=== PATIENT | male | born 1950 | race African-American/Black ===

== ENCOUNTER 2018-06-05 13:09 | Inpatient (IN) | payer BC, OTHER ==
[~2018-06-05] VITALS: Ht 190.5 cm; Wt 149.7 kg
[2018-06-05] MEDS ORDERED: FUROSEMIDE 20MG/2ML VIAL IVP ONE (13:45)
[2018-06-05] MEDS ORDERED: ALBUTEROL (0.083%) 2.5MG/3ML NEB HHN STA (14:16)
[2018-06-05 14:24] LABS: HEMATOCRIT. 26.4 % (42.0-52.0); HEMOGLOBIN. 8.4 g/dL (14.0-18.0); MEAN CORPUSCULAR HEMOGLOBIN 26.1 pg (28.0-32.0); MEAN CORPUSCULAR VOLUME 82.6 fL (80.0-94.0); MEAN PLATELET VOLUME 9.6 fl (7.4-10.4); PLATELET 66 x1000/uL (130-400); RED CELL DISTRIBUTION WIDTH 18.6 % (11.6-14.6)
[2018-06-05 14:28] LABS: CHLORIDE 92 mEq/L (98-107)
[2018-06-05 14:31] LABS: INR 1.5; PARTIAL THROMBOPLASTIN TIME 30.6 sec (23.4-31.0); PROTHROMBIN TIME 14.9 sec (9.6-11.0)
[2018-06-05] MEDS ORDERED: LEVOFLOXACIN 250MG PREMIX 50 ML IV ONE (14:45)
[2018-06-05] MEDS ORDERED: DOCUSATE SODIUM 100MG CAPSULE PO PRN (15:30)
[2018-06-05] MEDS ORDERED: MAGNESIUM/ALUMINUM HYDROXIDE/SIMETHICONE 30ML UDC PO PRN (15:30)
[2018-06-05] MEDS ORDERED: NA PHOS,M-B/NA PHOS,DI-BA ENEMA 118ML PR PRN (15:30)
[2018-06-05] MEDS ORDERED: IPRATROPIUM/ALBUTEROL 0.5-3(2.5)MG/3ML NEB INH PRN (15:30)
[2018-06-05] MEDS ORDERED: GUAIFENESIN 200MG/10ML SUGAR FREE UDC PO PRN (15:30)
[2018-06-05] MEDS ORDERED: LORAZEPAM 0.5MG TABLET PO PRN (15:30)
[2018-06-05] MEDS ORDERED: ONDANSETRON HCL 4MG/2ML INJ IV PRN (15:30)
[2018-06-05] MEDS ORDERED: ACETAMINOPHEN 650MG SUPP PR PRN (15:30)
[2018-06-05] MEDS ORDERED: CLONIDINE 0.1MG TABLET PO PRN (15:30)
[2018-06-05] MEDS ORDERED: ALBUTEROL (0.083%) 2.5MG/3ML NEB ONE (16:10)
[2018-06-05 16:28] LABS: PLATELET ESTIMATE DECREASED
[2018-06-05] MEDS ORDERED: LEVOFLOXACIN 500MG PREMIX 100 ML IV SCH (16:30)
[2018-06-05] MEDS ORDERED: LEVOFLOXACIN 500MG PREMIX 100ML IV NR (17:00)
[2018-06-05] MEDS: HYDROCODONE/ACETAMINOPHEN 5/325MG TABLET PO PRN (18:10)
[2018-06-05 18:34] LABS: BG BASE EXCESS 10.6 mmol/L (-2.0-2.0); BG CARBOXYHEMOGLOBIN 1.1 % (0.5-1.5); BG DEOXYHEMOGLOBIN 13.6 % (0.0-5.0); BG FRACTION INSPIRED OXYGEN 21; BG HCO3 ACT 35.7 mmol/L (22.0-26.0); BG METHEMOGLOBIN 0.2 % (0.0-1.5); BG OXYGEN SATURATION 86.2 % (92.0-98.5); BG OXYHEMOGLOBIN 85.1 % (94.0-97.0); BG PCO2 51.2 mmHg (35.0-45.0); BG PH 7.461 (7.350-7.450); BG SAMPLE SITE RIGHT RADIAL; BG VENT MODE ROOM AIR
[2018-06-05] MEDS: ACETAMINOPHEN 325MG TABLET PO PRN (20:17)
[2018-06-05 22:00] VITALS: BP 106/57
[2018-06-05] MEDS: DIPHENHYDRAMINE 50MG/ML VIAL IV PRN (23:01)
[2018-06-05] MEDS ORDERED: CIPR-213 PO (23:51)
[2018-06-05] MEDS ORDERED: FURO80TA87 PO (23:51)
[2018-06-05] MEDS ORDERED: POTA99TA4 MT (23:51)
[2018-06-06] VITALS (9 sets, daily range): BP systolic 96–110; BP diastolic 53–80
[2018-06-06] MEDS: IPRATROPIUM/ALBUTEROL 0.5-3(2.5)MG/3ML NEB HHN SCH ×4 (01:08→19:48)
[2018-06-06 06:48] LABS: HEMATOCRIT. 25.4 % (42.0-52.0); HEMOGLOBIN. 8.1 g/dL (14.0-18.0); MEAN CORPUSCULAR HEMOGLOBIN 25.9 pg (28.0-32.0); MEAN CORPUSCULAR VOLUME 81.7 fL (80.0-94.0); MEAN PLATELET VOLUME 10.6 fl (7.4-10.4); PLATELET 74 x1000/uL (130-400); RED BLOOD CELL COUNT 3.11 mill/uL (4.7-6.1); RED CELL DISTRIBUTION WIDTH 18.4 % (11.6-14.6)
[2018-06-06 07:01] LABS: CLARITY URINE CLEAR (CLEAR); COLOR URINE DARK YELLOW (YELLOW); KETONES URINE NEGATIVE (NEGATIVE); LEUKOCYTE ESTERASE URINE TRACE (NEGATIVE); NITRITE URINE POSITIVE (NEGATIVE); OCCULT BLOOD URINE NEGATIVE (NEGATIVE); PROTEIN URINE 1+ (NEGATIVE); SPECIFIC GRAVITY URINE 1.013 (1.005-1.030)
[2018-06-06 07:22] LABS: CHLORIDE 93 mEq/L (98-107)
[2018-06-06 07:34] LABS: *AMPHETAMINES SCREEN URINE NEGATIVE (NEGATIVE)
[2018-06-06 07:35] LABS: LDL CHOLESTEROL 64 mg/dL (5-100)
[2018-06-06 07:35] LABS: *BARBITURATES SCREEN URINE NEGATIVE (NEGATIVE); *BENZODIAZEPINES SCREEN URINE NEGATIVE (NEGATIVE); *COCAINE SCREEN URINE NEGATIVE (NEGATIVE); METHADONE URINE SCREEN NEGATIVE (NEGATIVE); OPIATES URINE SCREEN PRESUMTIVE POSITIVE (NEGATIVE)
[2018-06-06 07:36] LABS: CREATINE KINASE 39 IU/L (39-308); CREATINE KINASE MB FRACTION < 1.0 ng/mL (0.5-3.6)
[2018-06-06 07:36] LABS: CANNABINOID URINE SCREEN NEGATIVE (NEGATIVE); PHENCYCLIDINE URINE SCREEN NEGATIVE (NEGATIVE)
[2018-06-06 07:37] LABS: HDL CHOLESTEROL 31 mg/dL (40-59); T4 FREE 1.48 ng/dL (0.76-1.46)
[2018-06-06] MEDS ORDERED: FUROSEMIDE 40MG/4ML VIAL IV SCH (09:00)
[2018-06-06 11:18] LABS: INR 1.6; PROTHROMBIN TIME 16.1 sec (9.6-11.0)
[2018-06-06 11:41] LABS: CREATINE KINASE MB FRACTION 1.1 ng/mL (0.5-3.6)
[2018-06-06 11:55] LABS: BG BASE EXCESS 8.3 mmol/L (-2.0-2.0); BG DEOXYHEMOGLOBIN 1.8 % (0.0-5.0); BG HCO3 ACT 34.4 mmol/L (22.0-26.0); BG OXYGEN SATURATION 98.2 % (92.0-98.5); BG OXYHEMOGLOBIN 97.2 % (94.0-97.0); BG PH 7.399 (7.350-7.450); BG PO2 111.9 mmHg (75.0-100.0); BG SAMPLE SITE RIGHT RADIAL; BG TOTAL HEMOGLOBIN 9.6 g/dL (12.0-18.0); BG VENT MODE NASAL CANNULA
[2018-06-06] MEDS ORDERED: FUROSEMIDE 40MG/4ML VIAL IVP NR (15:00)
[2018-06-06 16:27] LABS: PLATELET ESTIMATE DECREASED
[2018-06-06] MEDS ORDERED: LEVOFLOXACIN 250MG PREMIX 50 ML IV SCH (17:00)
[2018-06-06] MEDS ORDERED: LIDOCAINE HCL/PF 1% 10 MG/ML 30ML VIAL INFIL NR (17:30)
[2018-06-06] MEDS ORDERED: LIDOCAINE HCL/PF 1% 10 MG/ML 5ML VIAL IJ NR (17:32)
[2018-06-06] MEDS: FUROSEMIDE 40MG/4ML VIAL IV SCH (17:39)
[2018-06-06] MEDS: LEVOFLOXACIN 500MG PREMIX 100 ML IV SCH (23:53)
[2018-06-07] VITALS: BP 105/67
[2018-06-07] MEDS: DIPHENHYDRAMINE 50MG/ML VIAL IV PRN (01:05)
[2018-06-07] MEDS: IPRATROPIUM/ALBUTEROL 0.5-3(2.5)MG/3ML NEB HHN SCH ×4 (01:38→21:14)
[2018-06-07 04:00] VITALS: BP 90/63
[2018-06-07 05:56] LABS: HEMATOCRIT 27.3 % (42.0-52.0); HEMOGLOBIN 8.6 g/dL (14.0-18.0); MEAN CORPUSCULAR HEMOGLOBIN 26.1 pg (28.0-32.0); MEAN CORPUSCULAR VOLUME 82.4 fL (80.0-94.0); PLATELET 80 x1000/uL (130-400); RED BLOOD CELL COUNT 3.31 mill/uL (4.7-6.1); RED CELL DISTRIBUTION WIDTH 18.4 % (11.6-14.6)
[2018-06-07] MEDS: FUROSEMIDE 40MG/4ML VIAL IV SCH ×2 (06:28→18:13)
[2018-06-07 08:00] VITALS: BP 107/65
[2018-06-07 09:45] LABS: BG BASE EXCESS 8.8 mmol/L (-2.0-2.0); BG CARBOXYHEMOGLOBIN 1.6 % (0.5-1.5); BG DEOXYHEMOGLOBIN 0.9 % (0.0-5.0); BG FRACTION INSPIRED OXYGEN 36; BG HCO3 ACT 34.9 mmol/L (22.0-26.0); BG METHEMOGLOBIN 0.3 % (0.0-1.5); BG OXYGEN SATURATION 99.1 % (92.0-98.5); BG OXYHEMOGLOBIN 97.2 % (94.0-97.0); BG PCO2 56.9 mmHg (35.0-45.0); BG PH 7.405 (7.350-7.450); BG PO2 142.5 mmHg (75.0-100.0); BG SAMPLE SITE RIGHT RADIAL; BG TOTAL HEMOGLOBIN 9.5 g/dL (12.0-18.0); BG VENT MODE NASAL CANNULA
[2018-06-07] MEDS ORDERED: DIGOXIN 500MCG/2ML AMP IV NR (11:00)
[2018-06-07] MEDS: FUROSEMIDE 40MG/4ML VIAL IVP NR ×2 (11:22→11:27)
[2018-06-07] MEDS: LORAZEPAM 0.5MG TABLET PO PRN (11:27)
[2018-06-07 12:00] VITALS: BP 99/66
[2018-06-07] MEDS: MIDODRINE HCL 5MG TABLET PO SCH ×2 (13:43→18:14)
[2018-06-07 16:00] VITALS: BP 116/66
[2018-06-07] MEDS: LEVOFLOXACIN 500MG PREMIX 100 ML IV SCH (18:14)
[2018-06-07] MEDS: POTASSIUM CHLORIDE 20MEQ TABLET SR PO SCH (18:14)
[2018-06-07 20:00] VITALS: BP 103/74
[2018-06-08] VITALS: BP 101/75
[2018-06-08] MEDS: IPRATROPIUM/ALBUTEROL 0.5-3(2.5)MG/3ML NEB HHN SCH ×4 (01:05→21:33)
[2018-06-08 04:00] VITALS: BP 104/72
[2018-06-08 06:03] LABS: HEMATOCRIT. 27.4 % (42.0-52.0); HEMOGLOBIN. 8.6 g/dL (14.0-18.0); MEAN CORPUSCULAR VOLUME 82.7 fL (80.0-94.0); PLATELET 82 x1000/uL (130-400); RED BLOOD CELL COUNT 3.31 mill/uL (4.7-6.1); RED CELL DISTRIBUTION WIDTH 18.2 % (11.6-14.6)
[2018-06-08] MEDS: FUROSEMIDE 40MG/4ML VIAL IV SCH ×2 (06:25→17:56)
[2018-06-08] MEDS: HYDROCODONE/ACETAMINOPHEN 5/325MG TABLET PO PRN (06:47)
[2018-06-08 07:10] LABS: CHLORIDE 92 mEq/L (98-107)
[2018-06-08 07:30] VITALS: BP 108/68
[2018-06-08] MEDS ORDERED: METOLAZONE 2.5MG TABLET PO NR (09:15)
[2018-06-08] MEDS: MIDODRINE HCL 5MG TABLET PO SCH ×3 (09:34→17:57)
[2018-06-08] MEDS: POTASSIUM CHLORIDE 20MEQ TABLET SR PO SCH ×2 (09:35→17:57)
[2018-06-08 12:00] VITALS: BP 127/79
[2018-06-08] MEDS: DILTIAZEM HCL 30MG TABLET PO SCH ×2 (13:16→17:57)
[2018-06-08 13:24] LABS: NUCLEATED RED BLOOD CELLS 1 /100 WBC; PLATELET ESTIMATE SLIGHTLY DECREASED
[2018-06-08 16:00] VITALS: BP 109/71
[2018-06-08] MEDS: LEVOFLOXACIN 500MG PREMIX 100 ML IV SCH (17:56)
[2018-06-08] MEDS: DIGOXIN 500MCG/2ML AMP IV SCH (17:57)
[2018-06-08] MEDS ORDERED: DIGOXIN 250MCG TABLET PO SCH (18:00)
[2018-06-08 20:00] VITALS: BP 106/67
[2018-06-08] MEDS: LORAZEPAM 0.5MG TABLET PO PRN (22:19)
[2018-06-09 00:01] VITALS: BP 105/58
[2018-06-09] MEDS: DILTIAZEM HCL 30MG TABLET PO SCH ×5 (00:48→17:15)
[2018-06-09] MEDS: IPRATROPIUM/ALBUTEROL 0.5-3(2.5)MG/3ML NEB HHN SCH ×4 (02:00→22:22)
[2018-06-09 03:56] VITALS: BP 111/71
[2018-06-09] MEDS: FUROSEMIDE 40MG/4ML VIAL IV SCH ×2 (06:23→17:16)
[2018-06-09 06:32] LABS: HEMATOCRIT. 26.7 % (42.0-52.0); HEMOGLOBIN. 8.4 g/dL (14.0-18.0); MEAN CORPUSCULAR HEMOGLOBIN 26.2 pg (28.0-32.0); MEAN CORPUSCULAR VOLUME 83.6 fL (80.0-94.0); MEAN PLATELET VOLUME 9.7 fl (7.4-10.4); PLATELET 92 x1000/uL (130-400); RED BLOOD CELL COUNT 3.19 mill/uL (4.7-6.1); RED CELL DISTRIBUTION WIDTH 18.8 % (11.6-14.6)
[2018-06-09 08:05] VITALS: BP 97/65
[2018-06-09] MEDS: LORAZEPAM 0.5MG TABLET PO PRN (10:27)
[2018-06-09] MEDS: POTASSIUM CHLORIDE 20MEQ TABLET SR PO SCH ×2 (10:27→17:16)
[2018-06-09] MEDS: MIDODRINE HCL 5MG TABLET PO SCH ×3 (10:27→17:14)
[2018-06-09 10:46] LABS: PLATELET ESTIMATE DECREASED
[2018-06-09 11:54] VITALS: BP 103/58
[2018-06-09 16:01] VITALS: BP 108/61
[2018-06-09] MEDS: LEVOFLOXACIN 500MG PREMIX 100 ML IV SCH (17:14)
[2018-06-09] MEDS: DIGOXIN 500MCG/2ML AMP IV SCH (17:23)
[2018-06-09 20:00] VITALS: BP 98/66
[2018-06-10] MEDS: DILTIAZEM HCL 30MG TABLET PO SCH ×4 (00:23→18:12)
[2018-06-10 00:33] VITALS: BP 112/59
[2018-06-10] MEDS: IPRATROPIUM/ALBUTEROL 0.5-3(2.5)MG/3ML NEB HHN SCH ×4 (02:45→21:14)
[2018-06-10 04:00] VITALS: BP 110/53
[2018-06-10] MEDS: HYDROCODONE/ACETAMINOPHEN 5/325MG TABLET PO PRN (04:45)
[2018-06-10] MEDS: FUROSEMIDE 40MG/4ML VIAL IV SCH ×2 (06:31→18:12)
[2018-06-10 06:40] LABS: HEMATOCRIT. 26.4 % (42.0-52.0); HEMOGLOBIN. 8.4 g/dL (14.0-18.0); MEAN CORPUSCULAR HEMOGLOBIN 26.6 pg (28.0-32.0); MEAN CORPUSCULAR VOLUME 83.8 fL (80.0-94.0); MEAN PLATELET VOLUME 9.3 fl (7.4-10.4); PLATELET 99 x1000/uL (130-400); RED BLOOD CELL COUNT 3.15 mill/uL (4.7-6.1); RED CELL DISTRIBUTION WIDTH 18.5 % (11.6-14.6)
[2018-06-10 08:00] VITALS: BP 108/54
[2018-06-10] MEDS: POTASSIUM CHLORIDE 20MEQ TABLET SR PO SCH ×2 (09:38→18:12)
[2018-06-10] MEDS: MIDODRINE HCL 5MG TABLET PO SCH ×3 (09:38→18:12)
[2018-06-10 12:00] VITALS: BP 120/63
[2018-06-10 13:34] LABS: NUCLEATED RED BLOOD CELLS 1 /100 WBC; PLATELET ESTIMATE SLIGHTLY DECREASED
[2018-06-10] MEDS ORDERED: HYDROCODONE/ACETAMINOPHEN 5/325MG TABLET PO PRN (15:30)
[2018-06-10 16:00] VITALS: BP 117/65
[2018-06-10] MEDS: DIGOXIN 500MCG/2ML AMP IV SCH (18:13)
[2018-06-10] MEDS: LEVOFLOXACIN 500MG PREMIX 100 ML IV SCH (18:13)
[2018-06-10 20:04] VITALS: BP 80/56
[2018-06-11 00:10] VITALS: BP 110/64
[2018-06-11] MEDS: IPRATROPIUM/ALBUTEROL 0.5-3(2.5)MG/3ML NEB HHN SCH ×3 (02:31→20:15)
[2018-06-11 04:00] VITALS: BP 116/67
[2018-06-11] MEDS: DILTIAZEM HCL 30MG TABLET PO SCH ×3 (06:00→21:00)
[2018-06-11] MEDS: FUROSEMIDE 40MG/4ML VIAL IV SCH ×2 (07:05→16:53)
[2018-06-11 07:48] LABS: HEMATOCRIT. 28.2 % (42.0-52.0); HEMOGLOBIN. 8.8 g/dL (14.0-18.0); MEAN CORPUSCULAR HEMOGLOBIN 26.1 pg (28.0-32.0); MEAN CORPUSCULAR VOLUME 83.6 fL (80.0-94.0); MEAN PLATELET VOLUME 9.1 fl (7.4-10.4); PLATELET 107 x1000/uL (130-400); RED BLOOD CELL COUNT 3.38 mill/uL (4.7-6.1); RED CELL DISTRIBUTION WIDTH 18.5 % (11.6-14.6)
[2018-06-11 08:00] VITALS: BP 106/42
[2018-06-11 08:17] LABS: CHLORIDE 90 mEq/L (98-107)
[2018-06-11] MEDS: MIDODRINE HCL 5MG TABLET PO SCH ×3 (08:51→16:52)
[2018-06-11] MEDS: POTASSIUM CHLORIDE 20MEQ TABLET SR PO SCH ×2 (08:52→16:53)
[2018-06-11 12:00] VITALS: BP 138/74
[2018-06-11 13:55] LABS: NUCLEATED RED BLOOD CELLS 3 /100 WBC; PLATELET ESTIMATE DECREASED
[2018-06-11 16:00] VITALS: BP 118/56
[2018-06-11] MEDS: LEVOFLOXACIN 500MG PREMIX 100 ML IV SCH (16:53)
[2018-06-11 20:00] VITALS: BP 107/56
[2018-06-11] MEDS: ACETAMINOPHEN 325MG TABLET PO PRN (21:40)
[2018-06-12] VITALS (7 sets, daily range): BP systolic 106–118; BP diastolic 55–83
[2018-06-12] MEDS: IPRATROPIUM/ALBUTEROL 0.5-3(2.5)MG/3ML NEB HHN SCH ×4 (02:01→20:42)
[2018-06-12 06:28] LABS: HEMATOCRIT 28.6 % (42.0-52.0); HEMOGLOBIN 8.9 g/dL (14.0-18.0); MEAN CORPUSCULAR HEMOGLOBIN 26.2 pg (28.0-32.0); MEAN CORPUSCULAR VOLUME 83.8 fL (80.0-94.0); PLATELET 104 x1000/uL (130-400); RED BLOOD CELL COUNT 3.41 mill/uL (4.7-6.1); RED CELL DISTRIBUTION WIDTH 18.8 % (11.6-14.6)
[2018-06-12] MEDS: FUROSEMIDE 40MG/4ML VIAL IV SCH ×2 (07:08→16:36)
[2018-06-12 10:18] LABS: INR 1.5; PARTIAL THROMBOPLASTIN TIME 31.8 sec (23.4-31.0); PROTHROMBIN TIME 15.7 sec (9.6-11.0)
[2018-06-12] MEDS: DILTIAZEM HCL 30MG TABLET PO SCH ×2 (10:19→21:55)
[2018-06-12] MEDS: MIDODRINE HCL 5MG TABLET PO SCH (10:19)
[2018-06-12] MEDS: POTASSIUM CHLORIDE 20MEQ TABLET SR PO SCH ×2 (10:19→16:37)
[2018-06-12] MEDS ORDERED: MIDODRINE HCL 5MG TABLET PO PRN (13:00)
[2018-06-12 13:25] LABS: BG BASE EXCESS 13.2 mmol/L (-2.0-2.0); BG FRACTION INSPIRED OXYGEN 40; BG HCO3 ACT 41.8 mmol/L (22.0-26.0); BG METHEMOGLOBIN 0.3 % (0.0-1.5); BG OXYHEMOGLOBIN 98.7 % (94.0-97.0); BG PCO2 82.5 mmHg (35.0-45.0); BG PH 7.323 (7.350-7.450); BG PO2 183.8 mmHg (75.0-100.0); BG SAMPLE SITE RIGHT BRACHIAL; BG TOTAL HEMOGLOBIN 10.1 g/dL (12.0-18.0); BG VENT MODE NASAL CANNULA
[2018-06-12] MEDS ORDERED: POTASSIUM CHLORIDE 20MEQ TABLET SR PO NR (16:15)
[2018-06-12 16:22] LABS: BG BASE EXCESS 17.1 mmol/L (-2.0-2.0); BG BILEVEL POS AIRWAY PRESSURE 15/5; BG CARBOXYHEMOGLOBIN 1.1 % (0.5-1.5); BG FRACTION INSPIRED OXYGEN 40; BG METHEMOGLOBIN 0.1 % (0.0-1.5); BG OXYGEN SATURATION 93.9 % (92.0-98.5); BG OXYHEMOGLOBIN 92.8 % (94.0-97.0); BG PCO2 83.6 mmHg (35.0-45.0); BG PH 7.358 (7.350-7.450); BG PO2 72.4 mmHg (75.0-100.0); BG SAMPLE SITE RIGHT BRACHIAL; BG VENT MODE MASK - BIPAP; BG VENT RATE 16 set
[2018-06-12] MEDS: LEVOFLOXACIN 500MG PREMIX 100 ML IV SCH (16:37)
[2018-06-12] MEDS: ACETAMINOPHEN 325MG TABLET PO PRN ×2 (17:04→20:19)
[2018-06-12] MEDS ORDERED: MAGNESIUM 1 G PREMIX 100 ML IV NR (17:30)
[2018-06-12] MEDS: DIPHENHYDRAMINE 50MG/ML VIAL IV PRN (23:36)
[2018-06-13] VITALS (11 sets, daily range): BP systolic 105–145; BP diastolic 50–79
[2018-06-13] MEDS: IPRATROPIUM/ALBUTEROL 0.5-3(2.5)MG/3ML NEB HHN SCH ×4 (02:21→19:57)
[2018-06-13 06:00] LABS: HEMATOCRIT. 30.2 % (42.0-52.0); HEMOGLOBIN. 9.4 g/dL (14.0-18.0); MEAN CORPUSCULAR HEMOGLOBIN 26.3 pg (28.0-32.0); MEAN CORPUSCULAR VOLUME 84.4 fL (80.0-94.0); MEAN PLATELET VOLUME 9.1 fl (7.4-10.4); PLATELET 91 x1000/uL (130-400); RED BLOOD CELL COUNT 3.57 mill/uL (4.7-6.1); RED CELL DISTRIBUTION WIDTH 19.1 % (11.6-14.6)
[2018-06-13] MEDS: POTASSIUM CHLORIDE 20MEQ TABLET SR PO SCH ×2 (08:27→17:23)
[2018-06-13] MEDS: FUROSEMIDE 40MG/4ML VIAL IV SCH ×2 (08:29→17:23)
[2018-06-13] MEDS: DILTIAZEM HCL 30MG TABLET PO SCH ×2 (08:30→21:00)
[2018-06-13 10:33] LABS: NUCLEATED RED BLOOD CELLS 1 /100 WBC; PLATELET ESTIMATE DECREASED
[2018-06-13 11:45] LABS: BG BILEVEL POS AIRWAY PRESSURE 15/5; BG CARBOXYHEMOGLOBIN 1.2 % (0.5-1.5); BG DEOXYHEMOGLOBIN 2.8 % (0.0-5.0); BG FRACTION INSPIRED OXYGEN 40; BG HCO3 ACT 41.9 mmol/L (22.0-26.0); BG METHEMOGLOBIN 0.3 % (0.0-1.5); BG OXYGEN SATURATION 97.2 % (92.0-98.5); BG OXYHEMOGLOBIN 95.7 % (94.0-97.0); BG PCO2 73.9 mmHg (35.0-45.0); BG PH 7.371 (7.350-7.450); BG SAMPLE SITE RIGHT RADIAL; BG TOTAL HEMOGLOBIN 10.5 g/dL (12.0-18.0); BG VENT MODE MASK - BIPAP; BG VENT RATE 16 set
[2018-06-13] MEDS: ACETAMINOPHEN 325MG TABLET PO PRN (17:23)
[2018-06-13] MEDS: LEVOFLOXACIN 500MG PREMIX 100 ML IV SCH (17:24)
[2018-06-13] MEDS: VANCOMYCIN 1500MG in DEXTROSE 5% WATER 250ML IV SCH (18:41)
[2018-06-14] VITALS (11 sets, daily range): BP systolic 106–128; BP diastolic 46–74
[2018-06-14] MEDS: IPRATROPIUM/ALBUTEROL 0.5-3(2.5)MG/3ML NEB HHN SCH ×4 (02:56→21:23)
[2018-06-14] MEDS: DIPHENHYDRAMINE 50MG/ML VIAL IV PRN (03:13)
[2018-06-14 06:21] LABS: HEMATOCRIT 28.9 % (42.0-52.0); HEMOGLOBIN 9.1 g/dL (14.0-18.0); MEAN CORPUSCULAR HEMOGLOBIN 26.6 pg (28.0-32.0); MEAN CORPUSCULAR VOLUME 84.1 fL (80.0-94.0); PLATELET 84 x1000/uL (130-400); RED BLOOD CELL COUNT 3.44 mill/uL (4.7-6.1); RED CELL DISTRIBUTION WIDTH 19.3 % (11.6-14.6)
[2018-06-14] MEDS: POTASSIUM CHLORIDE 20MEQ TABLET SR PO SCH ×2 (08:30→17:53)
[2018-06-14] MEDS: FUROSEMIDE 40MG/4ML VIAL IV SCH ×2 (08:30→17:54)
[2018-06-14] MEDS: DILTIAZEM HCL 30MG TABLET PO SCH ×2 (08:35→20:24)
[2018-06-14 09:54] LABS: BG BASE EXCESS 18.4 mmol/L (-2.0-2.0); BG CARBOXYHEMOGLOBIN 1.1 % (0.5-1.5); BG DEOXYHEMOGLOBIN 0.5 % (0.0-5.0); BG FRACTION INSPIRED OXYGEN 44; BG HCO3 ACT 48.5 mmol/L (22.0-26.0); BG METHEMOGLOBIN 0.2 % (0.0-1.5); BG OXYGEN SATURATION 99.5 % (92.0-98.5); BG OXYHEMOGLOBIN 98.2 % (94.0-97.0); BG PCO2 100.6 mmHg (35.0-45.0); BG PH 7.301 (7.350-7.450); BG PO2 233.4 mmHg (75.0-100.0); BG SAMPLE SITE LEFT RADIAL; BG TOTAL HEMOGLOBIN 10.3 g/dL (12.0-18.0); BG VENT MODE NASAL CANNULA
[2018-06-14 13:58] LABS: BG BASE EXCESS 15.4 mmol/L (-2.0-2.0); BG CARBOXYHEMOGLOBIN 0.8 % (0.5-1.5); BG DEOXYHEMOGLOBIN 0.9 % (0.0-5.0); BG HCO3 ACT 43.2 mmol/L (22.0-26.0); BG METHEMOGLOBIN 0.4 % (0.0-1.5); BG OXYGEN SATURATION 99.1 % (92.0-98.5); BG OXYHEMOGLOBIN 97.9 % (94.0-97.0); BG PCO2 74.9 mmHg (35.0-45.0); BG PH 7.379 (7.350-7.450); BG SAMPLE SITE RIGHT RADIAL; BG TOTAL HEMOGLOBIN 10.1 g/dL (12.0-18.0); BG VENT MODE NASAL CANNULA
[2018-06-14] MEDS: VANCOMYCIN 1500MG in DEXTROSE 5% WATER 250ML IV SCH (17:46)
[2018-06-14] MEDS: LEVOFLOXACIN 500MG PREMIX 100 ML IV SCH (17:46)
[2018-06-14] MEDS: ACETAMINOPHEN 325MG TABLET PO PRN (21:43)
[2018-06-15] VITALS (11 sets, daily range): BP systolic 92–140; BP diastolic 51–71
[2018-06-15] MEDS: IPRATROPIUM/ALBUTEROL 0.5-3(2.5)MG/3ML NEB HHN SCH ×4 (02:51→21:22)
[2018-06-15] MEDS: FUROSEMIDE 40MG/4ML VIAL IV SCH ×2 (08:37→16:24)
[2018-06-15] MEDS: DILTIAZEM HCL 30MG TABLET PO SCH ×2 (08:37→20:59)
[2018-06-15] MEDS: POTASSIUM CHLORIDE 20MEQ TABLET SR PO SCH ×2 (08:37→16:24)
[2018-06-15 15:24] LABS: HEMATOCRIT 28.6 % (42.0-52.0); HEMOGLOBIN 9.1 g/dL (14.0-18.0); MEAN CORPUSCULAR HEMOGLOBIN 26.4 pg (28.0-32.0); MEAN CORPUSCULAR VOLUME 83.4 fL (80.0-94.0); PLATELET 71 x1000/uL (130-400); RED BLOOD CELL COUNT 3.43 mill/uL (4.7-6.1); RED CELL DISTRIBUTION WIDTH 18.8 % (11.6-14.6)
[2018-06-15] MEDS: LEVOFLOXACIN 500MG PREMIX 100 ML IV SCH (16:24)
[2018-06-15] MEDS: VANCOMYCIN 1500MG in DEXTROSE 5% WATER 250ML IV SCH (17:53)
[2018-06-16] VITALS: BP 100/65
[2018-06-16] MEDS: IPRATROPIUM/ALBUTEROL 0.5-3(2.5)MG/3ML NEB HHN SCH ×4 (01:26→20:10)
[2018-06-16 04:00] VITALS: BP 114/66
[2018-06-16] MEDS: FUROSEMIDE 40MG/4ML VIAL IV SCH ×2 (06:30→16:35)
[2018-06-16 06:37] LABS: HEMATOCRIT. 29.1 % (42.0-52.0); HEMOGLOBIN. 9.2 g/dL (14.0-18.0); MEAN CORPUSCULAR HEMOGLOBIN 26.6 pg (28.0-32.0); MEAN CORPUSCULAR VOLUME 83.9 fL (80.0-94.0); MEAN PLATELET VOLUME 9.1 fl (7.4-10.4); PLATELET 66 x1000/uL (130-400); RED BLOOD CELL COUNT 3.47 mill/uL (4.7-6.1); RED CELL DISTRIBUTION WIDTH 19.2 % (11.6-14.6)
[2018-06-16 08:03] VITALS: BP 113/57
[2018-06-16] MEDS: POTASSIUM CHLORIDE 20MEQ TABLET SR PO SCH ×2 (08:13→16:48)
[2018-06-16] MEDS: DILTIAZEM HCL 30MG TABLET PO SCH ×2 (08:13→21:00)
[2018-06-16 10:31] LABS: BG BASE EXCESS 10.6 mmol/L (-2.0-2.0); BG DEOXYHEMOGLOBIN 2.5 % (0.0-5.0); BG FRACTION INSPIRED OXYGEN 32; BG HCO3 ACT 37.3 mmol/L (22.0-26.0); BG METHEMOGLOBIN 0.1 % (0.0-1.5); BG OXYGEN SATURATION 97.5 % (92.0-98.5); BG OXYHEMOGLOBIN 96.4 % (94.0-97.0); BG PCO2 62.1 mmHg (35.0-45.0); BG PH 7.396 (7.350-7.450); BG PO2 106.3 mmHg (75.0-100.0); BG SAMPLE SITE RIGHT RADIAL; BG TOTAL HEMOGLOBIN 10.1 g/dL (12.0-18.0); BG VENT MODE NASAL CANNULA
[2018-06-16] MEDS ORDERED: POTASSIUM CHLORIDE 20MEQ TABLET SR PO SCH (10:45)
[2018-06-16 12:00] VITALS: BP 89/45
[2018-06-16 16:00] VITALS: BP 118/59
[2018-06-16] MEDS: LEVOFLOXACIN 500MG PREMIX 100 ML IV SCH (16:35)
[2018-06-16] MEDS: VANCOMYCIN 1500MG in DEXTROSE 5% WATER 250ML IV SCH (16:35)
[2018-06-16 17:47] LABS: PLATELET ESTIMATE DECREASED
[2018-06-16 20:00] VITALS: BP 93/59
[2018-06-17] VITALS (8 sets, daily range): BP systolic 102–133; BP diastolic 56–75
[2018-06-17] MEDS: IPRATROPIUM/ALBUTEROL 0.5-3(2.5)MG/3ML NEB HHN SCH ×4 (01:26→20:49)
[2018-06-17 05:45] LABS: HEMOGLOBIN 9.2 g/dL (14.0-18.0); MEAN CORPUSCULAR HEMOGLOBIN 26.5 pg (28.0-32.0); MEAN CORPUSCULAR VOLUME 83.2 fL (80.0-94.0); PLATELET 60 x1000/uL (130-400); RED BLOOD CELL COUNT 3.49 mill/uL (4.7-6.1); RED CELL DISTRIBUTION WIDTH 19.3 % (11.6-14.6)
[2018-06-17] MEDS: FUROSEMIDE 40MG/4ML VIAL IV SCH ×2 (07:22→17:54)
[2018-06-17] MEDS: POTASSIUM CHLORIDE 20MEQ TABLET SR PO SCH ×2 (09:00→17:54)
[2018-06-17] MEDS: ACETAMINOPHEN 325MG TABLET PO PRN ×2 (09:00→17:55)
[2018-06-17] MEDS: DILTIAZEM HCL 30MG TABLET PO SCH ×2 (09:01→21:15)
[2018-06-17] MEDS ORDERED: POTASSIUM CHLORIDE 20MEQ/PACKET PO NR (11:16)
[2018-06-17] MEDS: DIPHENHYDRAMINE 50MG/ML VIAL IV PRN ×2 (15:59→22:52)
[2018-06-17] MEDS: LEVOFLOXACIN 500MG PREMIX 100 ML IV SCH (17:53)
[2018-06-17] MEDS: VANCOMYCIN 1500MG in DEXTROSE 5% WATER 250ML IV SCH (18:18)
[2018-06-18] VITALS (8 sets, daily range): BP systolic 91–120; BP diastolic 54–69
[2018-06-18] MEDS: ACETAMINOPHEN 325MG TABLET PO PRN (00:17)
[2018-06-18] MEDS: IPRATROPIUM/ALBUTEROL 0.5-3(2.5)MG/3ML NEB HHN SCH ×3 (01:13→20:06)
[2018-06-18] MEDS: DIPHENHYDRAMINE 50MG/ML VIAL IV PRN ×2 (02:55→21:00)
[2018-06-18 07:14] LABS: HEMOGLOBIN. 9.2 g/dL (14.0-18.0); MEAN CORPUSCULAR HEMOGLOBIN 26.5 pg (28.0-32.0); MEAN CORPUSCULAR VOLUME 83.9 fL (80.0-94.0); MEAN PLATELET VOLUME 9.7 fl (7.4-10.4); PLATELET 55 x1000/uL (130-400); RED BLOOD CELL COUNT 3.46 mill/uL (4.7-6.1); RED CELL DISTRIBUTION WIDTH 18.3 % (11.6-14.6)
[2018-06-18] MEDS: FUROSEMIDE 40MG/4ML VIAL IV SCH ×3 (07:15→16:28)
[2018-06-18 07:35] LABS: CHLORIDE 89 mEq/L (98-107)
[2018-06-18] MEDS: DILTIAZEM HCL 30MG TABLET PO SCH ×2 (08:49→21:00)
[2018-06-18] MEDS: POTASSIUM CHLORIDE 20MEQ TABLET SR PO SCH ×2 (08:49→16:25)
[2018-06-18 10:40] LABS: PLATELET ESTIMATE DECREASED
[2018-06-18] MEDS: HYDROCODONE/ACETAMINOPHEN 5/325MG TABLET PO PRN ×2 (12:25→19:07)
[2018-06-18] MEDS: LEVOFLOXACIN 500MG PREMIX 100 ML IV SCH (16:26)
[2018-06-18] MEDS: VANCOMYCIN 1500MG in DEXTROSE 5% WATER 250ML IV SCH (18:37)
== END 2018-06-18 22:00 | DRG 682 ==
LOC: ER 13:09 → 6WST 14:43 → ENRESERV 20:47 → 5EST 06-12 19:20
PROVIDERS: ADMIT Internal Medicine; ATTEND Internal Medicine
PROC: 0HDRXZZ Extraction of Toe Nail, External Approach (ICD-10-PCS; principal; 2018-06-06)
PROC: 0HDRXZZ Extraction of Toe Nail, External Approach (ICD-10-PCS; 2018-06-06)
PROC: 30233N1 Transfusion of Nonautologous Red Blood Cells into Peripheral Vein, Percutaneous Approach (ICD-10-PCS; 2018-06-06)
PROC: 5A09357 Assistance with Respiratory Ventilation, Less than 24 Consecutive Hours, Continuous Positive Airway Pressure (ICD-10-PCS; 2018-06-10)
PROC: 5A09357 Assistance with Respiratory Ventilation, Less than 24 Consecutive Hours, Continuous Positive Airway Pressure (ICD-10-PCS; 2018-06-12)
PROC: 5A09357 Assistance with Respiratory Ventilation, Less than 24 Consecutive Hours, Continuous Positive Airway Pressure (ICD-10-PCS; 2018-06-14)
PROC: 5A09357 Assistance with Respiratory Ventilation, Less than 24 Consecutive Hours, Continuous Positive Airway Pressure (ICD-10-PCS; 2018-06-15)
PROC: 5A09357 Assistance with Respiratory Ventilation, Less than 24 Consecutive Hours, Continuous Positive Airway Pressure (ICD-10-PCS; 2018-06-16)
PROC: 5A09357 Assistance with Respiratory Ventilation, Less than 24 Consecutive Hours, Continuous Positive Airway Pressure (ICD-10-PCS; 2018-06-17)
PROC: 5A09357 Assistance with Respiratory Ventilation, Less than 24 Consecutive Hours, Continuous Positive Airway Pressure (ICD-10-PCS; 2018-06-18)
DX: N17.9 Acute kidney failure, unspecified (principal); I50.43 Acute on chronic combined systolic (congestive) and diastolic (congestive) heart failure; J18.9 Pneumonia, unspecified organism; E43 Unspecified severe protein-calorie malnutrition; J96.02 Acute respiratory failure with hypercapnia; I13.0 Hypertensive heart and chronic kidney disease with heart failure and stage 1 through stage 4 chronic kidney disease, or unspecified chronic kidney disease; G93.40 Encephalopathy, unspecified; D61.818 Other pancytopenia; D68.9 Coagulation defect, unspecified; I48.1 Persistent atrial fibrillation; L97.909 Non-pressure chronic ulcer of unspecified part of unspecified lower leg with unspecified severity; I47.2 Ventricular tachycardia; I42.9 Cardiomyopathy, unspecified; I42.0 Dilated cardiomyopathy; I27.20 Pulmonary hypertension, unspecified; I83.009 Varicose veins of unspecified lower extremity with ulcer of unspecified site; I86.1 Scrotal varices; N18.9 Chronic kidney disease, unspecified; I08.1 Rheumatic disorders of both mitral and tricuspid valves; N50.89 Other specified disorders of the male genital organs; Z95.810 Presence of automatic (implantable) cardiac defibrillator; E87.70 Fluid overload, unspecified; D63.8 Anemia in other chronic diseases classified elsewhere; F03.90 Unspecified dementia, unspecified severity, without behavioral disturbance, psychotic disturbance, mood disturbance, and anxiety; I44.7 Left bundle-branch block, unspecified; N18.3 Chronic kidney disease, stage 3 (moderate); Z91.19 Patient's noncompliance with other medical treatment and regimen; Z98.61 Coronary angioplasty status; Z99.81 Dependence on supplemental oxygen; Z88.0 Allergy status to penicillin; B35.1 Tinea unguium
CPT/HCPCS: 36415; 36430; 36600; 71045; 71250; 73620; 76770; 76870; 78580; 80048; 80061; 80202; 80305; 82375; 82550; 82553; 82805; 82962; 83735; 83880; 84153; 84439; 84443; 84484; 85014; 85018; 85027; 85379; 86850; 86900; 86920; 93005; 93306; 93923; 93970; 93976; 94640; 97110; 97163; 97530; 99291; A6261; C1893; J1160; J1200; J1940; J1956; J2405; J3370; J3475; J3490; J7040; J7050; J7060; J7611; J7620; P9016; A4315; G0103